=== PATIENT | male | born 1940 ===

== ENCOUNTER 2017-11-08 09:04 | Day surgery (SDC) | payer MEDICARE ==
[2017-11-02 09:41] VITALS: BMI 33.0
[~2017-11-08 09:04] MED LIST: HEPARIN-NS 5,000 UNITS/500 ML 5,000 UNIT/500 ML BAG IV ONE; ceFAZolin IV 1 gm in Dextrose 2 GM/100 ML BAG IVPB ONE
--- NOTE | 2017-11-08 09:35 | PCM.SURG1 ---
Surgeon's Initial Post Op Note - Surgeon's Notes Surgeon: memo Manager Enrollment: 0 Type of Anesthesia: IV Sedation Anesthesia Administered By: clark Pre-Operative Diagnosis: malfuntioning avf left arm Operative Findings: multiple stenoses Post-Operative Diagnosis: same Operation Performed: fistulagram lefrt arm with balloon angioplasty of subclavian vein, axillary , and basilic vein left arm. 8 and 7 mm balloon Specimen/Specimens Removed: 0 Estimated Blood Loss: EBL {In ML}: 5 Blood Products Given: N/A Drains Used: No Drains Post-Op Condition: Good Date of Surgery/Procedure: 11/08/17 Time of Surgery/Procedure: 09:35
[2017-11-08] MEDS ORDERED: Propofol 10 mg/ml Inj (20 ML) ONE (10:40)
[2017-11-08] MEDS ORDERED: Succinylcholine Chloride 20 mg/ml Syr (5 ml) IV ONE (10:41)
[2017-11-08] MEDS ORDERED: Lidocaine 4% (Laryng-O-Jet) Kit MM ONE (10:49)
[2017-11-08] MEDS ORDERED: HYDROmorphone 0.5 mg/0.5 ml ISec IVP PRN (12:37)
--- NOTE | 2017-11-08 12:41 | PCM.SURG1 ---
Surgeon's Initial Post Op Note - Surgeon's Notes Surgeon: Dr. Mcdowell Product Info Specialist: Dr. Alonso PGY3 Type of Anesthesia: General Endo Pre-Operative Diagnosis: ESRD Operative Findings: see operative report Post-Operative Diagnosis: see operative report Operation Performed: Left Arterio-venous fistula formation Specimen/Specimens Removed: none Estimated Blood Loss: EBL {In ML}: 30 Blood Products Given: N/A Drains Used: No Drains Post-Op Condition: Good Date of Surgery/Procedure: 11/08/17 Time of Surgery/Procedure: 11:30
[2017-11-08] MEDS ORDERED: Oxycodone/Acetaminophen 5/325 mg Tab PO PRN (12:43)
[2017-11-08 14:09] VITALS: RESP 16; TEMP 97.6
[2017-11-08 15:01] VITALS: BP 144/69; PULSE 67; O2SAT 97
--- NOTE | 2017-11-09 00:05 | OP ---
Copied To: Ollie Mcdowell Jr., MD Attending MD: Ollie Mcdowell Jr., MD PROCEDURE DATE: 11/08/2017 PREOPERATIVE DIAGNOSIS: Renal failure. POSTOPERATIVE DIAGNOSIS: Renal failure. PROCEDURE CARRIED OUT: Brachiocephalic fistula, left arm. SURGEON: Ollie Mcdowell Jr., MD INDICATIONS: The patient is an older middle-aged man with renal insufficiency who soon required dialysis. OPERATIVE FINDINGS: Preoperative vein mapping demonstrated that the cephalic vein was of adequate size; however, the basilic vein was quite small and was not suitable for use for dialysis. Thus, we created a saphenous surface vein fistula at the elbow between the brachial artery and cephalic vein in a spatulated end-to-side fashion. At the end of the procedure, there was a palpable pulse at the wrist and there was a good flow to the fistula. Blood loss for the procedure was 30 mL. DESCRIPTION OF PROCEDURE: The patient was given general anesthesia and intravenous antibiotics. Venodyne boots were applied. An incision was made exposing the cephalic vein which had been marked on the skin with immediate pre-procedure vein mapping and vein marking and after we had dissected out the vein, we then dissected out the artery. An end-to-side fistula was created using loupe magnification and heparin anticoagulation. At the end of this, we had excellent flow. The wounds were then closed with 5-0 nylon sutures on the skin. OPERATION CARRIED OUT: Brachiocephalic fistula, left elbow. Ollie Mcdowell Jr., MD cc: 1. Vicente Gonzalez DO 2. [place] MD 3. Danielle Elliott MD
== END 2017-11-08 15:00 | disposition home or self-care (01) ==
LOC: C.SDS 09:04
PROVIDERS: ATTEND Surgery Vascular Surgery
DX: N18.6 End stage renal disease (principal); E11.22 Type 2 diabetes mellitus with diabetic chronic kidney disease; I12.0 Hypertensive chronic kidney disease with stage 5 chronic kidney disease or end stage renal disease
CPT/HCPCS: 36821; 82948; J0690; J1170; J1644; J2001; J2405; J2704; J3010

== ENCOUNTER 2017-11-11 21:33 | Emergency (ER) | payer MEDICARE ==
[2017-11-11 21:33] VITALS: BMI 33.0
--- NOTE | 2017-11-11 22:31 | C.PDOC ---
History Of Present Illness Patient presents to ED c/o left upper extremity swelling noted today at approx 1pm. Patient is s/p placement of AV fistula on 11/[address] Mcdowell. He denies fever, chest pain, SOB, rash, sensory changes, trauma/injuries. Time Seen by Provider: 11/11/17 21:55 Chief Complaint (Nursing): Upper Extremity Problem/Injury History Per: Patient History/Exam Limitations: no limitations Onset/Duration Of Symptoms: Hrs Current Symptoms Are (Timing): Still Present Severity: Mild Past Medical History Reviewed: Historical Data, Nursing Documentation, Vital Signs Vital Signs: Last Vital Signs Temp 98.7 F 11/11/17 22:41 Pulse 75 11/11/17 22:41 Resp 18 11/11/17 22:41 BP 160/74 H 11/11/17 22:41 Pulse Ox 99 11/12/17 05:03 - Medical History PMH: Bronchitis (FEB 2017), Colonic Polyps, Fractures (LEFT HIP ORIF), HTN, Peripheral Edema, Chronic Kidney Disease Other Surgeries: AV fistula 11/08/17 Family History: States: No Known Family Hx - Social History Hx Alcohol Use: No Hx Substance Use: No - Immunization History Hx Tetanus Toxoid Vaccination: No Hx Influenza Vaccination: Yes Hx Pneumococcal Vaccination: Yes Review Of Systems Constitutional: Negative for: Fever, Chills Cardiovascular: Negative for: Chest Pain, Palpitations Respiratory: Negative for: Cough, Shortness of Breath Gastrointestinal: Negative for: Nausea, Vomiting, Abdominal Pain Musculoskeletal: Positive for: Other (left upper arm swelling ) Skin: Negative for: Rash Physical Exam - Physical Exam Appears: Well, Non-toxic, No Acute Distress, Other (morbidly obese) Skin: Normal Color, Warm, Dry Oral Mucosa: Moist Cardiovascular: Rhythm Regular Respiratory: Normal Breath Sounds, No Rales, No Rhonchi, No Wheezing Extremity: Normal ROM, Capillary Refill (< 2 sec all digits), No Deformity, Swelling, Other (left upper ext - AV fistula with palpable thrill, no erythema, no bleeding, no warmth to touch, (+) mild diffuse swelling of left arm/hand) Pulses: Left Radial: Normal, Right Radial: Normal Neurological/Psych: Oriented x3, Normal Sensation ED Course And Treatment O2 Sat by Pulse Oximetry: 99 (RA) Pulse Ox Interpretation: Normal Progress Note: Patient instructed to return in the AM for venous doppler and further evaluation. He understands he should return to ED sooner if he has any concerning symptoms. - Physician Consult Information Physician Contacted: Yolande Robertson Outcome Of Conversation: Discussed patient with surgery resident, recommends patient come back in AM for doppler & further eval. Dr Mcdowell currently away but will be back tomorrow. Disposition Counseled Patient/Family Regarding: Studies Performed, Diagnosis, Need For Followup - Disposition Referrals: Ollie Mcdowell Jr., MD [Staff Provider] - Disposition: HOME/ ROUTINE Disposition Time: 22:35 Condition: STABLE Additional Instructions: RETURN Sunday FOR EVALUATION AND DOPPLER OF YOUR LEFT ARM RETURN TO EMERGENCY ROOM IF SYMPTOMS WORSEN REGRESE EL POR LA MAANA PARA EVALUACIN Y DOPPLER DE BETH BRAZO REFUGIO REGRESE AL MUNIRA DE EMERGENCIA SI LOS SNTOMAS EMPEORAN Forms: [facility] (Tajik), General Discharge Instructions Print Language: GEORGIAN - Clinical Impression Clinical Impression: Left arm swelling
[2017-11-11 22:42] VITALS: BP 160/74; PULSE 75; RESP 18; TEMP 98.7
[2017-11-11 22:44] VITALS: O2SAT 99
== END 2017-11-11 22:42 | disposition home or self-care (01) ==
LOC: C.ER 21:33
DX: M79.89 Other specified soft tissue disorders (principal); I12.9 Hypertensive chronic kidney disease with stage 1 through stage 4 chronic kidney disease, or unspecified chronic kidney disease; N18.9 Chronic kidney disease, unspecified